=== PATIENT | female | born 1950 | race Caucasian/White ===

== ENCOUNTER → 2016-02-19 | Outpatient (CLI) | payer OTHER ==
--- NOTE | 2016-02-28 07:56 | MA ---
Digital Screening Mammogram With iCAD Indication: Routine screening Breast density: Type B. Technique: Four views of each breast are obtained including CC and oblique lateral Rody (implant displaced) and non-Rody (implant not displaced) views. CAD is utilized using the iCAD product. Comparison: October 2013, September 2012, April 2011, and March 2009 Findings: No malignant-type calcifications, mass, or architectural distortion. Bilateral breast implants are unchanged in configuration. Impression: Negative mammograms. BI-RADS 1: Negative Recommendation: Routine screening in one year. [facility] will send a result letter to the patient. Negative mammography should not preclude additional workup of a clinically suspicious finding. The patient's information is entered into a reminder system with a target due date for her next mammogram [facility]
== END ==
LOC: FIMAGING 12:34
DX: Z12.31 Encounter for screening mammogram for malignant neoplasm of breast (principal)
CPT/HCPCS: G0202